=== PATIENT | male | born 1990 | race African-American/Black ===

== ENCOUNTER 2019-07-28 01:00 | Emergency (ER) | payer OTHER ==
[~2019-07-28] VITALS: Ht 180.3 cm; Wt 67.3 kg
[2019-07-28] MEDS ORDERED: ADDE20TA PO (01:51)
[2019-07-28 02:06] LABS: HEMATOCRIT 43.7 % (42.0-52.0); HEMOGLOBIN 14.8 g/dl (13.5-17.5); MEAN CORPUSCULAR HEMOGLOBIN 29.4 pg (27.0-33.0); MEAN CORPUSCULAR HGB CONC 33.9 g/dl (32.0-36.5); MEAN CORPUSCULAR VOLUME 86.9 fl (80.0-96.0); PLATELET COUNT, AUTOMATED 250 10^3/uL (150-450); RED BLOOD COUNT 5.03 10^6/uL (4.30-6.10); WHITE BLOOD COUNT 4.9 10^3/uL (4.0-10.0)
[2019-07-28 02:28] LABS: AMPHETAMINES LEVEL URINE POSITIVE (NEGATIVE); BARBITURATES URINE NEGATIVE (NEGATIVE); BENZODIAZEPINES URINE NEGATIVE (NEGATIVE); CANNABINOIDS URINE NEGATIVE (NEGATIVE); COCAINE METABOLITE URINE NEGATIVE (NEGATIVE); METHADONE URINE NEGATIVE (NEGATIVE); OPIATES URINE NEGATIVE (NEGATIVE); PHENCYCLIDINE URINE NEGATIVE (NEGATIVE)
[2019-07-28 02:40] LABS: ACETAMINOPHEN LEVEL < 2.0 UG/ML (10.0-30.0); ALBUMIN 4.1 GM/DL (3.2-5.2); ALT/SGPT 19 U/L (12-78); BILIRUBIN,DIRECT 0.3 MG/DL (0.0-0.2); BILIRUBIN,TOTAL 0.9 MG/DL (0.2-1.0); BLOOD UREA NITROGEN 8 MG/DL (7-18); CALCIUM LEVEL 8.9 MG/DL (8.5-10.1); CARBON DIOXIDE LEVEL 28 MEQ/L (21-32); CHLORIDE LEVEL 108 MEQ/L (98-107); ETHYL ALCOHOL (ETHANOL) 0.188 % (0.000-0.010); GLOMERULAR FILTRATION RATE > 60.0 (>60); GLUCOSE, FASTING 100 MG/DL (70-100); POTASSIUM SERUM 3.3 MEQ/L (3.5-5.1); SALICYLATE LEVEL < 1.7 MG/DL (5.0-30.0); SODIUM LEVEL 145 MEQ/L (136-145); TOTAL PROTEIN 7.6 GM/DL (6.4-8.2)
[2019-07-28] MEDS ORDERED: POTASSIUM CHLORIDE 10 MEQ SR TABLET PO ONE (06:30)
[2019-07-28] MEDS ORDERED: ADDE20CA3 PO (06:42)
--- NOTE | 2019-07-28 08:19 | REP ---
Clinical: Trauma. Technique: AP, lateral, bilateral oblique views right hand . Findings: The osseous structures and joint spaces are intact and normal. There is no evidence for acute fracture or dislocation. Surrounding soft tissues are unremarkable. No subcutaneous emphysema or radiodense foreign body. Impression: Normal right hand series . No acute fracture or dislocation. Electronically Signed by Ever Love MD 07/28/2019 08:10 A
--- NOTE | 2019-07-28 11:51 | ED PDOC ---
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 He came in to the ER. The patient was observed where he became sober. A [id number] was called in order to ascertain whether he needed to be admitted as he was denying suicidality after he became sober. The patient was met with where he reported that he had just ended a long relationship of 9 years of which they had been solely . He reports that the previous evening in question that he had in fact had his girlfriend leave. He reports that he was upset and had begun drinking. He reports that he felt that way while he was intoxicated, however, after he resolved she reported that he was feeling much improved. His first sergeant was there of which he provided collateral information that the patient generally does not have significant suicidal thoughts or any parasuicidal behavior that he has ever seen with soldier has been in the for 7 years with a excellent performance. The patient reports that he feels at this time fine and reports that he is not interested in a voluntary admission. Review Of Systems Depression: As above, denies any significant history prior. Anxiety: The patient denies any excessive worry associated with physical symptoms. They deny any experience of discreet panic in the past. Shruthi: The patient denies any episodes of euphoria/dysphoria associated with decreased need for sleep, hedonism, talkatively or impulsivity lasting longer than 5 days. Psychotic: The patient denies any experiences of auditory or visual hallucinations. They deny any episodes of paranoia or delusional thinking in the past Trauma: The patient denies any traumatic events associated with nightmares or intrusive thoughts. Borderline: The patient screens negative for borderline personality at this junction. Past Psychiatric History The patient reports no history of psychiatric admissions, medication trials or follows up at [facility] for psychotherapy, no current medications Family Psychiatric History The patient denies/is unaware any history of mental health history including addictions and suicide. 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 Denies any significant history of trauma or abuse. Currently, lives alone after his girlfriend of 9 years had left, reports that the separation generally went smoothly. Reports that he has no work problems and has no significant legal problems at this time. Denies any significant use of tobacco, alcohol or illicit drugs. Medical History Patient has no significant past medical history. Allergies See below Mental Status Examination General: Well dressed with good hygiene Speech: Spontaneous and fluid Thought processes: Linear and logical MSK: Smooth and coordinated gait, no signs of tremors or involuntary orofacial movements Thought content: Future orientated Abstract reasoning, and computation: Intact Description of associations: Intact Description of abnormal or psychotic thoughts: Denies any suicidal or homicidal ideation. Denies any auditory or visual hallucinations. Does not appear to be responding to internal stimuli. Does not appear to be endorsing any bizarre or paranoid ideation. Judgment: fair Insight: fair Orientation: Alert and orientated 3 Cognition: Grossly normal Recent and remote memory: Intact Attention span and concentration: Intact Fund of knowledge: Adequate Mood: "okay" Affect: Euthymic with a full range Diagnoses Situational disturbance. Alcohol use, unspecified. 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 Upon becoming sober, he reports he does not feel the same a common phenomenon seen where alcohol use had been the provoking factor. After discussion of the patient with the risks and benefits of voluntary admission, he declines at this time. He does not meet involuntary criteria in my opinion as currently has a normal mental status exam and denies any suicidal or homicidal ideation. Collateral information supports that he is quite functional with no functional loss. His symptoms reported of depression are quite minimal and at this time, I do not have any information suggesting that he is at any greater risk than he would be at his baseline state and thus I cannot make the argument that he is at imminent risk of self-harm or harm towards others and will be discharged in good poonam. Disposition Discharged to chain of command. Time Spent 30 minutes. Friday MARIO SANCHEZ DO Jul 28, 2019 11:51
[2019-07-28 13:23] VITALS: BP 140/78
== END 2019-07-28 13:25 | disposition home or self-care (01) ==
LOC: M ED 01:00 → CANBEDREQ 13:08 → M ED 13:25
DX: F33.9 Major depressive disorder, recurrent, unspecified (principal); R45.851 Suicidal ideations; Z79.899 Other long term (current) drug therapy
CPT/HCPCS: 36415; 73130; 80048; 80076; 80307; 84443; 85027; 99284; G0480